=== PATIENT | female | born 1935 | race Caucasian/White ===

== ENCOUNTER → 2018-10-06 | Outpatient (CLI) | payer OTHER ==
[2016-01-03 11:01] VITALS: BP 115/71
[~2018-10-06] MED LIST: CELE200C PO; FERR325T14 PO; GLUC1TAB69 PO; HYDR-2765 PO; HYDR12.58 PO; MULT-246 PO; WARF-78 PO
--- NOTE | 2018-10-06 13:17 | RAD ---
AP view the pelvis and lateral view of the left hip Clinical indications: Left hip pain FINDINGS: No acute fracture or dislocation or lytic process is seen. Calcification of the gluteal tendon is seen just superior to the greater trochanter of the left hip and is also seen on the right side. No significant arthritic change is seen otherwise. This may be seen with calcific tendinitis and/or myositis ossificans. The hip joints are symmetric. 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 The largest measures 5.5 cm. IMPRESSION: No acute fracture. Calcific tendinitis or myositis ossificans. Electronically signed by: Albaro Lopez MD (10/06/2018 1:14 PM) [id number]
== END | disposition home or self-care (01) ==
LOC: RAD 09:21
PROVIDERS: ATTEND Orthopaedic Surgery Sports Medicine
DX: D21.5 Benign neoplasm of connective and other soft tissue of pelvis (principal)
CPT/HCPCS: 73501

== ENCOUNTER 2021-01-24 08:19 | Day surgery (SDC) | payer MEDICARE ==
[~2021-01-24] VITALS: Ht 15.2 cm; Wt 79.5 kg
[~2021-01-24 08:19] MED LIST changes: +CIPROFLOXACIN 0.3% OPHTH SOLUTION 5ML BOTTLE. OD ONE; +IV RINGERS,LACTATED 1000ML 1,000 ML IV SCH; +LIDOCAINE 2% JELLY 6ML IN APPLICATOR. OD ONE; +PROPARACAINE 0.5% OPHTH SOLUTION 15ML BOTTLE. OD ONE; -WARF-78 PO; +WARF5TAB2 PO
[2021-01-24] MEDS ORDERED: OXYB5TAB10 PO (09:16)
[2021-01-24 09:17] VITALS: BP 153/78
[2021-01-24] MEDS: CYCLOPENTOLATE 1% OPHTH SOLUTION 2ML BOTTLE. OD SCH ×3 (10:01→10:11)
[2021-01-24] MEDS: PHENYLEPHRINE 10% OPHTH SOLUTION 5ML BOTTLE. OD SCH ×4 (10:01→11:42)
[2021-01-24] MEDS ORDERED: TRYPAN BLUE 0.06% INTRAOCULAR 0.5 ML SYRINGE. ONE (10:16)
[2021-01-24] MEDS ORDERED: CHONDROITIN-SOD-HYALURONATE 0.5 ML DISP.SYRIN. ONE (10:17)
[2021-01-24] MEDS ORDERED: NEO/POLYMYX/DEXAMETH OPHTH OINTMENT 3.5GM TUBE. ONE (10:17)
[2021-01-24] MEDS ORDERED: LIDOCAINE 2% JELLY 6ML IN APPLICATOR. ONE (10:17)
[2021-01-24] MEDS ORDERED: CHONDROIT-SOD-HYALURONATE KIT. ONE (10:17)
[2021-01-24] MEDS ORDERED: LIDOCAINE 1% PF 2 ML VIAL. ONE ×2 (10:27→10:37)
[2021-01-24] MEDS ORDERED: LIDOCAINE 1%/PHENYLEPH 1.5% PF OPHTH 1 ML VIAL. ONE (10:29)
[2021-01-24] MEDS ORDERED: TETRACAINE 0.5% OPHTH SOLUTION 4ML BOTTLE. OD ONE (10:30)
[2021-01-24] MEDS ORDERED: MIDAZOLAM HCL/PF 2 MG/2 ML VIAL. ONE (11:21)
[2021-01-24 12:10] VITALS: BP 147/69
--- NOTE | 2021-01-24 12:34 | OP ---
DATE OF SURGERY: 01/24/2021 PREOPERATIVE DIAGNOSIS: Cataract in the right eye. PROCEDURE: Phacoemulsification with posterior chamber intraocular lens implantation in the right eye. INDICATIONS: Painless progressive visual loss and visually significant cataract and difficulty reading and driving. SURGEON: Roxanne Becker MD ANESTHESIA: Topical with monitored anesthesia care. DESCRIPTION OF PROCEDURE: The right eye was prepped with Betadine in the usual sterile fashion and draped. A paracentesis was performed followed by instillation of preservative-free lidocaine admixed with phenylephrine and balanced salt solution. A temporal clear corneal incision was made followed by instillation of Viscoat. A capsulorrhexis was performed, followed by hydrodissection. The phacoemulsification handpiece was used to remove the nucleus in a modified stop and chop fashion. The I/A handpiece was used to remove the cortex. Provisc was injected in the capsular bag and an Cr model [id number] with a power of 22.0 diopters was placed into the capsular bag. Balanced salt solution was used to hydrate the corneal wounds and the viscoelastic evacuated with the I/A handpiece. Once no leak was noted, Maxitrol was placed on the eye and the eye shielded and the patient was sent to the recovery room uneventfully. RYAN DR: Amy TID: [id number]
== END 2021-01-24 12:30 | disposition home or self-care (01) ==
LOC: SURG 08:19
PROVIDERS: ATTEND Ophthalmology
DX: H25.89 Other age-related cataract (principal); I10 Essential (primary) hypertension; M19.90 Unspecified osteoarthritis, unspecified site; Z79.899 Other long term (current) drug therapy; Z98.890 Other specified postprocedural states; Z82.49 Family history of ischemic heart disease and other diseases of the circulatory system; Z83.3 Family history of diabetes mellitus; Z72.89 Other problems related to lifestyle
CPT/HCPCS: 66984; J0171; J0690; J1580; J2250; J3490; V2632